=== PATIENT | female | born 1965 | race Caucasian/White ===

== ENCOUNTER 2017-06-09 13:57 | Inpatient (IN) | payer BC ==
[~2017-06-09] VITALS: Ht 167.6 cm; Wt 60.1 kg
[2017-06-09] MEDS ORDERED: IBUP400T PO (14:11)
[2017-06-09] MEDS ORDERED: SODIUM CHLORIDE FLUSH 10ML SYR IVF ONE (14:30)
[2017-06-09] MEDS ORDERED: SODIUM CHLORIDE 0.9% 1,000ML IVBOLUS ONE (14:30)
[2017-06-09] MEDS ORDERED: ONDANSETRON 2MG/ML, 2ML IVPush ONE (14:30)
[2017-06-09] MEDS ORDERED: ICN FENTANYL 4MCG/ML IV IVPush STA (15:14)
[2017-06-09] MEDS ORDERED: FENTANYL PF 100 MCG/2ML ONE ×2 (15:15→19:38)
[2017-06-09] MEDS ORDERED: FENTANYL PF 100 MCG/2ML IVPush ONE (15:22)
[2017-06-09] MEDS ORDERED: ONDANSETRON 2MG/ML, 2ML ONE (15:42)
[2017-06-09] MEDS ORDERED: OMNIPAQUE 350 MG/ML, 100ML BOTTLE ONE (18:25)
[2017-06-09] MEDS ORDERED: FENTANYL PF 100 MCG/2ML IVPush PRN (19:30)
[2017-06-09] MEDS ORDERED: METRONIDAZOLE PMX 500MG/100ML 100 ML IV ONE (19:30)
[2017-06-09] MEDS ORDERED: CEFOTETAN PMX 2GM/50ML 50 ML IV ONE (19:30)
[2017-06-09] MEDS ORDERED: SODIUM CHLORIDE 0.9% 1,000 ML IV SCH (20:12)
[2017-06-09 20:14] LABS: BLOOD UREA NITROGEN 13 mg/dL (7-18)
[2017-06-09 20:18] LABS: ASPARTATE AMINO TRANSFERASE 24 U/L (15-37)
[2017-06-09] MEDS: HEPARIN 5,000 UNITS/ML, 1ML SQ SCH (20:30)
[2017-06-09] MEDS ORDERED: HYDROmorphone 2 MG/ML, 1ML IVPush PRN (20:30)
[2017-06-09] MEDS ORDERED: ACETAMINOPHEN 325 MG TABLET PO PRN (20:30)
[2017-06-09] MEDS ORDERED: HYDROCORTISONE 25 MG SUPP PR SCH (21:00)
[2017-06-09] MEDS: HYDROCORTISONE 25 MG SUPP PR SCH (21:00)
[2017-06-09 21:28] VITALS: BP 125/83
[2017-06-09] MEDS: DOCUSATE 100 MG CAPSULE PO SCH (23:00)
[2017-06-10 04:10] VITALS: BP 117/64
[2017-06-10] MEDS: HEPARIN 5,000 UNITS/ML, 1ML SQ SCH ×3 (04:30→20:30)
[2017-06-10] MEDS ORDERED: SENNA/DOCUSATE TABLET PO SCH (09:00)
[2017-06-10] MEDS: DOCUSATE 100 MG CAPSULE PO SCH ×2 (09:11→20:56)
[2017-06-10] MEDS: HYDROCORTISONE 25 MG SUPP PR SCH ×2 (09:12→21:00)
[2017-06-10 09:21] VITALS: BP 120/85
[2017-06-10] MEDS: ONDANSETRON 2MG/ML, 2ML IVPush PRN (10:57)
[2017-06-10] MEDS ORDERED: CEFOTETAN PMX 1GM/50ML 50 ML IV SCH (12:00)
[2017-06-10] MEDS ORDERED: METRONIDAZOLE PMX 500MG/100ML 100 ML IV SCH (12:30)
[2017-06-10 12:50] VITALS: BP 118/72
[2017-06-10] MEDS: ONDANSETRON ODT 4 MG PO PRN (18:32)
[2017-06-10 20:00] VITALS: BP 132/79
[2017-06-11] MEDS: ONDANSETRON ODT 4 MG PO PRN (02:28)
[2017-06-11 02:29] VITALS: BP 125/74
[2017-06-11] MEDS: HEPARIN 5,000 UNITS/ML, 1ML SQ SCH (03:45)
[2017-06-11] MEDS ORDERED: TRAM50TA2 PO (07:00)
[2017-06-11] MEDS ORDERED: ONDA4TAB13 SL (07:12)
[2017-06-11] MEDS: ONDANSETRON 2MG/ML, 2ML IVPush PRN (07:59)
[2017-06-11] MEDS: DOCUSATE 100 MG CAPSULE PO SCH (07:59)
== END 2017-06-11 08:30 | disposition home or self-care (01) | DRG 374 ==
LOC: ED 19:01 → EDIP 19:07 → 3NW 20:34
PROVIDERS: ADMIT Internal Medicine; ATTEND Internal Medicine
DX: C78.5 Secondary malignant neoplasm of large intestine and rectum (principal); K85.90 Acute pancreatitis without necrosis or infection, unspecified; C56.9 Malignant neoplasm of unspecified ovary; I89.0 Lymphedema, not elsewhere classified; K59.00 Constipation, unspecified; Z80.3 Family history of malignant neoplasm of breast; Z88.5 Allergy status to narcotic agent; Z82.49 Family history of ischemic heart disease and other diseases of the circulatory system; Z83.3 Family history of diabetes mellitus; Z82.0 Family history of epilepsy and other diseases of the nervous system
CPT/HCPCS: 36415; 74020; 74177; 80053; 81003; 83605; 83690; 85025; 86304; 96374; 96375; J1170; J2405; J3010; Q0162; Q9967; S0074